=== PATIENT | female | born 1945 | race Caucasian/White ===

== ENCOUNTER 2018-12-06 19:19 | Emergency (ER) | payer OTHER ==
--- NOTE | 2018-12-06 20:24 | ED Physician Chart ---
ED Chief Complaint/HPI - Patient Information Date Seen:: 12/06/18 Time Seen:: 20:00 Chief Complaint:: laceration right second toe History of Present Illness:: After going to the bathroom at 1900 patient noted blood on the bathroom floor. No known trauma but patient has diabetic neuropathy. Patient is on Coumadin. Patient did have atrial fibrillation for which she had ablation by her meat team lead suggests continuing Coumadin. Allergies:: Allergies Allergy/AdvReac Type Severity Reaction Status Date / Time adhesive tape Allergy Verified 12/06/18 19:31 Vitals:: Vital Signs - 8 hr 12/06/18 19:25 Temp 98.3 F HR 84 RR 19 BP 144/68 O2 Sat % 96 Historian:: Patient Review:: Nurse's Note Reviewed ED Review of Systems - Review of Systems General/Constitutional: No fever, No chills Skin: Skin lesions Head: No headache Eyes: No loss of vision ENT: No earache Neck: No neck pain Cardio Vascular: No chest pain, No palpitations Pulmonary: No SOB GI: No nausea, No vomiting G/U: No dysuria Musculoskeletal: No bone or joint pain Endocrine: No polydipsia Psychiatric: No prior psych history Hematopoietic: No bruising Allergic/Immuno: No urticaria Neurological: No syncope ED Past Medical History - Past Medical History Past Medical History: HTN, DM, Other (history of atrial fibrillation) Family History: Heart disease, Cancer, Other (Alzheimer's disease) Social History: Non Smoker, No Alcohol Surgical History: other (cardiac ablation and hysterectomy) Psychiatricy History: None Medication: Reviewed Family Medical History - Family Member Mother Hx Family Coronary Artery Disease: Yes (HEART FAILURE) ED Physical Exam - Physical Examination General/Constitutional: Well-developed, well-nourished, Alert, No distress Head: Atraumatic Eyes: Lids, conjuctiva normal, PERRL Skin: Nl inspection, No rash ENMT: External ears, nose nl, TM canals nl Neck: No nuchal rigidity Respiratory: Nl effort/Exclusion, Clear to Auscultation Cardio Vascular: RRR Other Cardio Vascular comments:: 3/6 systolic murmur GI: No tenderness/rebounding/guarding Other Extremities comments:: Right second toe: 3 mm vertical laceration of distal nail; no to minimal active bleeding; right foot slightly cool; 2 out of 4 dorsalis pedis pulse right foot Neuro/Psych: No focal deficits ED Assessment - Assessment General Assessment: The major area that the patient will develop a cellulitis of the right second toe since she has diabetes. I told the patient to watch carefully for any signs of infection. - Procedures Procedures:: Right second toe: for a pressure dressing 1/2 inch Steri-Strips applied longitudinally over the toe and circumferentially around the toe; 2 inch Tamiko then applied a dressing. ED Septic Shock - . Is Septic Shock (SBP<90, OR Lactate>4 mmol\L) present?: No - <6hrs of presentation: Vital Signs: Vital Signs - 8 hr 12/06/18 19:25 Temp 98.3 F HR 84 RR 19 BP 144/68 O2 Sat % 96 ED Reassessment (Disposition) - Reassessment Reassessment Condition:: Improved - Diagnosis Diagnosis:: Laceration nail and nail bed right second toe - Aftercare/Follow up Instructions Aftercare/Follow-Up Instructions:: Refer to Discharge Instructions - Patient Disposition Discharge/Transfer:: Home Condition at Disposition:: Stable, Improved
== END 2018-12-06 20:35 | disposition home or self-care (01) ==
LOC: ER 19:19
DX: S91.214A Laceration without foreign body of right lesser toe(s) with damage to nail, initial encounter (principal); Z91.048 Other nonmedicinal substance allergy status; X58.XXXA Exposure to other specified factors, initial encounter; Y93.89 Activity, other specified; Y92.89 Other specified places as the place of occurrence of the external cause; Y99.8 Other external cause status
CPT/HCPCS: X7704